=== PATIENT | female | born 1960 | race Caucasian/White ===

== ENCOUNTER → 2017-01-14 | Outpatient (CLI) | payer OTHER | LOC: RAD 11:40 | DX: R05 Cough (principal); R51 Headache; M15.9 Polyosteoarthritis, unspecified; J44.9 Chronic obstructive pulmonary disease, unspecified; F17.200 Nicotine dependence, unspecified, uncomplicated; E11.9 Type 2 diabetes mellitus without complications; F41.9 Anxiety disorder, unspecified; I25.10 Atherosclerotic heart disease of native coronary artery without angina pectoris; E78.5 Hyperlipidemia, unspecified; I10 Essential (primary) hypertension; K21.9 Gastro-esophageal reflux disease without esophagitis; M81.0 Age-related osteoporosis without current pathological fracture; M19.90 Unspecified osteoarthritis, unspecified site; E55.9 Vitamin D deficiency, unspecified; Z79.82 Long term (current) use of aspirin; Z79.899 Other long term (current) drug therapy; R91.8 Other nonspecific abnormal finding of lung field | CPT/HCPCS: 71020 ==

== ENCOUNTER → 2017-02-03 | Outpatient (CLI) | payer OTHER ==
[2017-02-03 09:04] LABS: BUN/CREATININE RATIO 14 (0-10)
== END ==
LOC: LAB 08:23
PROVIDERS: Nurse Practitioner Primary Care
DX: E55.9 Vitamin D deficiency, unspecified (principal); J44.9 Chronic obstructive pulmonary disease, unspecified; F41.9 Anxiety disorder, unspecified; E11.9 Type 2 diabetes mellitus without complications; E78.5 Hyperlipidemia, unspecified; I25.10 Atherosclerotic heart disease of native coronary artery without angina pectoris; I10 Essential (primary) hypertension; K21.9 Gastro-esophageal reflux disease without esophagitis; M19.90 Unspecified osteoarthritis, unspecified site; M81.0 Age-related osteoporosis without current pathological fracture
CPT/HCPCS: 36415; 80053

== ENCOUNTER → 2017-03-17 | Outpatient (CLI) | payer OTHER | LOC: RAD 11:10 | DX: M54.2 Cervicalgia (principal); M54.6 Pain in thoracic spine; M54.5 Low back pain; M47.894 Other spondylosis, thoracic region; M47.896 Other spondylosis, lumbar region | CPT/HCPCS: 72050; 72072; 72110 ==

== ENCOUNTER → 2017-03-24 | Outpatient (CLI) | payer OTHER | LOC: HEART 5 09:44 | DX: J44.9 Chronic obstructive pulmonary disease, unspecified (principal); F17.210 Nicotine dependence, cigarettes, uncomplicated; R93.2 Abnormal findings on diagnostic imaging of liver and biliary tract | CPT/HCPCS: 94060; 94729 ==

== ENCOUNTER 2021-01-05 18:03 | Emergency (ER) | payer MEDICARE, OTHER ==
[~2021-01-05 18:03] MED LIST: ALBUTEROL 0.083%; ALENDRONATE SOD70 MG PO; AUGMENTIN 875-1 EACH PO; CIPRO500 MG PO; COMBIVENT0.074 GM/I INH; DUONEB INH; ECOTRIN81 MG PO; FLAGYL500 MG PO; FLEXERIL 10 MG10 MG PO; GLUCOPHAGE500 MG PO; IMDUR ER TAB 3030 MG PO; IMDUR ER TAB 6060 MG PO; KEFLEX CAP 500500 MG PO; KLONOPIN TAB 00.5 MG PO; KLONOPIN1 MG PO; LIPITOR TAB 1010 MG PO; MEDROL4 MG PO; MICROZIDE12.5 MG PO; NAPROSYN500 MG PO; NEURONTIN 300300 MG PO; NITROSTAT0.4 MG SL; NORCO 5-325 TA1 EACH PO; NORCO 7.5-3251 EACH PO; OMNICEF 300 MG300 MG PO; PREDNISONE20 MG PO; PREDNISONE50 MG PO; SINGULAIR10 MG PO; SYMBICORT 160-1 INHA INH; TESSALON PERLE100 MG PO; TOPAMAX25 MG PO; VENTOLIN HFA 66.7 GM INH; VENTOLIN/PROVE0.5 ML INH; VITAMIN D350000 UNIT PO; ZOFRAN4 MG PO
== END 2021-01-05 21:45 | disposition home or self-care (01) ==
LOC: ER1 18:03
DX: S83.91XA Sprain of unspecified site of right knee, initial encounter (principal); S43.401A Unspecified sprain of right shoulder joint, initial encounter; E11.9 Type 2 diabetes mellitus without complications; I10 Essential (primary) hypertension; J44.9 Chronic obstructive pulmonary disease, unspecified; Z88.2 Allergy status to sulfonamides; W18.30XA Fall on same level, unspecified, initial encounter; Y92.009 Unspecified place in unspecified non-institutional (private) residence as the place of occurrence of the external cause
CPT/HCPCS: 73030; 73060; 73080; 73552; 73564; 73590; 99283

== ENCOUNTER → 2021-01-24 | Outpatient (CLI) | payer MEDICARE, OTHER | LOC: KOH-I 14:44 | DX: S72.421D Displaced fracture of lateral condyle of right femur, subsequent encounter for closed fracture with routine healing (principal) | CPT/HCPCS: 73700 ==

== ENCOUNTER → 2021-02-12 | Outpatient (CLI) | payer MEDICARE, OTHER | LOC: KOH-I 10:57 | DX: F17.210 Nicotine dependence, cigarettes, uncomplicated (principal); R91.1 Solitary pulmonary nodule | CPT/HCPCS: 71271 ==

== ENCOUNTER 2021-08-03 10:44 | Emergency (ER) | payer MEDICARE, OTHER ==
[2021-08-03] MEDS ORDERED: NAPROSYN500 MG PO (11:33)
== END 2021-08-03 11:54 | disposition home or self-care (01) ==
LOC: ER1 10:44
DX: S80.02XA Contusion of left knee, initial encounter (principal); S50.02XA Contusion of left elbow, initial encounter; S40.012A Contusion of left shoulder, initial encounter; E11.9 Type 2 diabetes mellitus without complications; I10 Essential (primary) hypertension; J44.9 Chronic obstructive pulmonary disease, unspecified; Z88.2 Allergy status to sulfonamides; W19.XXXA Unspecified fall, initial encounter; Y92.009 Unspecified place in unspecified non-institutional (private) residence as the place of occurrence of the external cause
CPT/HCPCS: 73030; 73080; 73564; 99283

== ENCOUNTER 2021-08-25 17:37 | Emergency (ER) | payer MEDICARE, OTHER | END 2021-08-25 18:07 | disposition home or self-care (01) | LOC: ER1 17:37 | DX: M25.562 Pain in left knee (principal); Z88.2 Allergy status to sulfonamides; J44.9 Chronic obstructive pulmonary disease, unspecified; J45.909 Unspecified asthma, uncomplicated | CPT/HCPCS: 96374; 99283; J1885 ==

== ENCOUNTER → 2021-09-24 | Outpatient (CLI) | payer MEDICARE, OTHER | LOC: KOH-I 13:00 | DX: S83.242A Other tear of medial meniscus, current injury, left knee, initial encounter (principal); M17.12 Unilateral primary osteoarthritis, left knee; M94.262 Chondromalacia, left knee; M71.22 Synovial cyst of popliteal space [Baker], left knee | CPT/HCPCS: 73721 ==

== ENCOUNTER → 2021-11-20 | Day surgery (SDC) | payer MEDICARE, OTHER ==
[~2021-11-20] VITALS: Ht 160 cm; Wt 86.6 kg
[~2021-11-20] MED LIST changes: +GLUCOPHAGE 500500 MG PO; -GLUCOPHAGE500 MG PO; +HYDROCODON-ACE1 EAC6 PO; -KLONOPIN TAB 00.5 MG PO; -NORCO 7.5-3251 EACH PO; +PHENTERMINE H37.5 MG PO; +VITAMIN D31250 MCG PO; -VITAMIN D350000 UNIT PO; +WELLBUTRIN XL300 M1 PO
== END | disposition home or self-care (01) ==
LOC: OR 04:39
DX: S83.242A Other tear of medial meniscus, current injury, left knee, initial encounter (principal); I10 Essential (primary) hypertension; E78.5 Hyperlipidemia, unspecified; J44.9 Chronic obstructive pulmonary disease, unspecified; M94.262 Chondromalacia, left knee; I25.10 Atherosclerotic heart disease of native coronary artery without angina pectoris; K21.9 Gastro-esophageal reflux disease without esophagitis; E11.9 Type 2 diabetes mellitus without complications; K58.9 Irritable bowel syndrome, unspecified; Z98.51 Tubal ligation status; Z88.2 Allergy status to sulfonamides; M17.12 Unilateral primary osteoarthritis, left knee; Z79.82 Long term (current) use of aspirin; Z20.822 Contact with and (suspected) exposure to COVID-19; Z91.014 Allergy to mammalian meats; Z91.018 Allergy to other foods; X50.1XXA Overexertion from prolonged static or awkward postures, initial encounter
CPT/HCPCS: 82962; J0171; J0690; J1100; J2001; J2250; J2405; J2704; J3010; J7030; J7120

== ENCOUNTER → 2022-02-11 | Outpatient (CLI) | payer MEDICARE, OTHER | LOC: KOH-I 14:37 | DX: J20.9 Acute bronchitis, unspecified (principal); J44.0 Chronic obstructive pulmonary disease with (acute) lower respiratory infection; R91.1 Solitary pulmonary nodule; Z03.818 Encounter for observation for suspected exposure to other biological agents ruled out; M25.562 Pain in left knee; E11.9 Type 2 diabetes mellitus without complications; M25.511 Pain in right shoulder | CPT/HCPCS: 71046 ==

== ENCOUNTER 2022-04-01 23:11 | Emergency (ER) | payer MEDICARE, OTHER ==
[2022-04-02 00:01] LABS: HEMOGLOBIN 12.6 gm/dl (12.3-15.3); RED BLOOD COUNT 4.06 M/UL (4.00-5.10); WHITE BLOOD COUNT 12.4 K/UL (4.5-11.0)
[2022-04-02 00:31] LABS: BUN/CREATININE RATIO 13 (0-10)
[2022-04-02] MEDS ORDERED: AMOX TR-K CLV1 EAC4 PO (03:49)
[2022-04-02] MEDS ORDERED: ZITHROMAX250 MG PO (03:49)
== END 2022-04-02 04:00 | disposition home or self-care (01) ==
LOC: ER1 23:11
DX: J18.9 Pneumonia, unspecified organism (principal); J43.9 Emphysema, unspecified
CPT/HCPCS: 71046; 80053; 82550; 82553; 84484; 85025; 93005; 94644; 94760; 96374; 96375; 99285; J1100; J1170; J2405; Q9967